=== PATIENT | female | born 1995 | race African-American/Black ===

== ENCOUNTER 2023-04-13 10:37 | Emergency (ER) | payer OTHER, SELFPAY ==
[2023-04-13 10:53] VITALS: BP 133/70; PULSE 100; RESP 16; TEMP 36.3; O2SAT 100
[2023-04-13 12:28] LABS: Influenza A QL RT-PCR Positive (Negative); Influenza B QL RT-PCR Negative (Negative); RSV RNA, RT-PCR Negative (Negative); SARS-CoV-2 RNA PCR Negative (Negative)
--- NOTE | 2023-04-13 13:06 | ED.URI ---
HPI - URI/Sore Throat General Chief Complaint: Upper Respiratory Infection Stated Complaint: headache, body aches Time Seen by Provider: 04/13/23 11:45 Source: patient Mode of arrival: ambulatory Limitations: no limitations History of Present Illness HPI Narrative: This is a 28 year old female that presents to the ER for cold symptoms present over the last 2 days. Reports headaches and myalgias. Denies fever, cough, sore throat, or congestion. Review of Systems Review of Systems: CONSTITUTIONAL: Denies fever ENT: Denies rhinorrhea, congestion, sore throat RESPIRATORY: Denies cough NEUROLOGIC: Reports headache All systems reviewed & are unremarkable except as noted in HPI and below PMFSH Past Medical History Medical History (Updated 04/13/23 @ 13:09 by Fina Samayoa PA-C) No active medical problems Social History Social History (Updated 04/13/23 @ 13:07 by Fina Samayoa PA-C) Smoking status: Never smoker Exam Narrative: GENERAL: Well-appearing, well-nourished, and in no acute distress. HEAD: Normocephalic, atraumatic. EYES: PERRLA and EOMI. ENT: Nares clear, no rhinorrhea or epistaxis. Mucous membranes moist. Oropharynx without tonsillar hypertrophy exudate or other lesions. Bilateral TMs pearly su non-bulging NECK: Supple. No adenopathy or masses. CHEST: Clear to auscultation. No respiratory distress. No wheezes rales or rhonchi HEART: Regular rate and rhythm. No murmur heard. Normal peripheral pulses. EXTREMITIES: Normal range of motion. No edema. SKIN: Warm, dry, no rash. NEURO: No focal deficits. Alert and oriented x3. PSYCH: Normal mood and affect Course Course Emergency Course: Patient updated on her workup and agrees with plan of care Vital Signs Vital signs: Vital Signs Temperature 97.4 F L 04/13/23 10:53 Pulse Rate 100 04/13/23 10:53 Respiratory Rate 16 04/13/23 10:53 Blood Pressure 133/70 04/13/23 10:53 Pulse Oximetry 100 04/13/23 10:53 Temperature 97.4 F L 04/13/23 10:53 Pulse Rate 100 04/13/23 10:53 Respiratory Rate 16 04/13/23 10:53 Blood Pressure 133/70 04/13/23 10:53 Pulse Oximetry 100 04/13/23 10:53 Oxygen Delivery Room Air 04/13/23 11:45 MDM - URI/Sore Throat MDM Narrative Medical decision making narrative: Patient presents to the emergency department for cold symptoms present over the last couple of days. She is afebrile and nontoxic appearing. Lungs are clear on exam. Oxygen saturation is normal on room air. Patient is influenza A positive. Will be started on Tamiflu. She is to follow up with her primary provider. She was given warnings to return to the ER Differential Diagnosis Differential diagnosis: Likely upper respiratory infection, sinusitis, viral infection, influenza and other (COVID) Lab Data Attestation: I reviewed the patient's lab results. Labs: Lab Results 04/13/23 Range/Units 11:46 Influenza A (RT-PCR) Positive A (Negative) Influenza B (RT-PCR) Negative (Negative) RSV (RT-PCR) Negative (Negative) SARS-CoV-2 RNA (RT-PCR) Negative (Negative) Critical Care Time Critical Care Time Critical Care Time: No Discharge Plan Discharge Clinical Impression: Influenza Patient Disposition: Home, Self-Care Condition: Stable Instructions: Influenza (ED) Additional Instructions: Return to the emergency department for worsening symptoms, or any other concerns Remain well-hydrated, get plenty of rest. Take Tylenol or Motrin [id number] for pain as needed. Flonase for nasal congestion. Zyrtec for runny nose. Take Tamiflu as prescribed Follow up with primary care doctor Prescriptions: New oseltamivir [Tamiflu] 75 mg capsule 75 mg PO Q12H 5 Days Qty: 10 0RF Follow-up/Referrals: Yo Washington MD [Physician] - UNKNOWN,DOCTOR [Primary Care Provider] -
[2023-04-13 13:30] VITALS: BP 130/60; PULSE 90; RESP 16; O2SAT 100
[2023-04-13] MEDS: KETOROLAC 30 MG/ML VIAL (*BKC) IM (13:31)
[2023-04-13] MEDS: ACETAMINOPHEN 500 MG TABLET 1000 MG PO (13:31)
== END 2023-04-13 13:30 | disposition home or self-care (01) ==
PROVIDERS: Emergency Medicine; Emergency Provider Physician Assistant
DX: J10.89 Influenza due to other identified influenza virus with other manifestations (principal); Z20.822 Contact with and (suspected) exposure to COVID-19
CPT/HCPCS: 87637; 96372; 99283; A9270; J1885